=== PATIENT | male | born 1970 | race Caucasian/White ===

== ENCOUNTER 2020-10-30 11:37 | Outpatient (CLI) | payer OTHER | END 2020-10-30 11:38 | disposition home or self-care (01) | LOC: COV 11:37 | PROVIDERS: ATTEND Internal Medicine | DX: R05 Cough (principal); R53.83 Other fatigue; R68.83 Chills (without fever); R07.0 Pain in throat; R19.7 Diarrhea, unspecified; R09.81 Nasal congestion; J34.89 Other specified disorders of nose and nasal sinuses; R11.0 Nausea; Z20.822 Contact with and (suspected) exposure to COVID-19 ==

== ENCOUNTER 2021-07-12 08:00 | Outpatient (CLI) | payer OTHER ==
--- NOTE | 2021-07-12 13:26 | XRAY Report ---
PROCEDURE: Shoulder 3 View LT INDICATIONS: TENDINITIS OF LEFT SHOULDER TECHNIQUE: 3 views of the shoulder were acquired. COMPARISON: None. FINDINGS: Bones: No fractures or dislocations. No suspicious bony lesions. Visualized ribs appear intact. M ild degenerative changes are seen, with mild subacromial spurring. Soft tissues: A mild amount of calcific tendinopathy can be seen. The visualized lung demonstrates a normal appearance. IMPRESSION: Mild degenerative changes are seen by plain film. If it would be helpful for clinical management decision making, please consider a dedicated, schedule d shoulder MRI for further evaluation (assuming that there is no contraindication). Reviewed by: Brett Montana MD on 07/12/2021 12:25 PM [facility] Approved by: Brett Montana MD on 07/12/2021 12:25 PM [facility] Station ID: [id number]
== END 2021-07-12 23:59 | disposition home or self-care (01) ==
LOC: DI.S 08:00
PROVIDERS: ATTEND Emergency Medicine
DX: M19.012 Primary osteoarthritis, left shoulder (principal)